=== PATIENT | male | born 1965 | race Caucasian/White ===

== ENCOUNTER 2020-05-27 08:04 | Outpatient (CLI) | payer OTHER | END 2020-05-27 08:19 | disposition home or self-care (01) | LOC: TOM 08:04 | PROVIDERS: ATTEND Internal Medicine Cardiovascular Disease | DX: K40.30 Unilateral inguinal hernia, with obstruction, without gangrene, not specified as recurrent (principal) ==

== ENCOUNTER 2020-09-28 06:50 | Day surgery (SDC) | payer OTHER ==
[~2020-09-28 06:50] MED LIST: DISCOVY
[2020-09-28] MEDS ORDERED: NEURONTIN600 M1 PO (12:40)
[2020-09-28] MEDS ORDERED: PERCOCET 5-3251 EACH PO (12:40)
[2020-09-28] MEDS ORDERED: COLACE100 MG PO (12:40)
== END 2020-09-28 15:40 | disposition home or self-care (01) ==
LOC: CIR.AMB 06:50
PROVIDERS: ATTEND Surgery
DX: K40.20 Bilateral inguinal hernia, without obstruction or gangrene, not specified as recurrent (principal); Z20.822 Contact with and (suspected) exposure to COVID-19